=== PATIENT | female | born 1980 | race Caucasian/White ===

== ENCOUNTER 2024-10-26 12:23 | Emergency (ER) | payer OTHER ==
[2024-10-26] MEDS: HYDROmorphone 0.5 MG/0.5 ML Syringe IVPUSH ONE ×2 (13:16→14:04)
[2024-10-26] MEDS: Sodium Chloride 0.9% 10 ML Syringe FLUSH ONE (14:04)
[2024-10-26] MEDS: Sodium Chloride 0.9% 80 ML IV SCH (14:48)
[2024-10-26] MEDS: Iopamidol 612 MG/ML 100 ML Bottle IV SCH (14:48)
[2024-10-26] MEDS: Ketorolac 30 MG/ML SDV IVPUSH ONE (15:51)
== END 2024-10-26 16:33 | disposition home or self-care (01) ==
LOC: JP.ED 12:23
DX: S22.41XA Multiple fractures of ribs, right side, initial encounter for closed fracture (principal); F17.200 Nicotine dependence, unspecified, uncomplicated; Z79.899 Other long term (current) drug therapy; V86.56XA Driver of dirt bike or motor/cross bike injured in nontraffic accident, initial encounter
CPT/HCPCS: 71260; 74177; 96374; 96375; 96376; 99283; 99284; J1885; Q9967; J1171